=== PATIENT | female | born 2000 ===

== ENCOUNTER 2019-07-06 03:45 | Emergency (ER) | payer MEDICAID, OTHER ==
[~2019-07-06] VITALS: Ht 165.1 cm; Wt 58.5 kg
[2019-07-06] MEDS ORDERED: FENTANYL PF 100MCG/2ML AMPUL ONE ×2 (03:55→04:41)
[2019-07-06] MEDS ORDERED: FENTANYL PF 100MCG/2ML AMPUL IV ONE ×2 (04:00→05:00)
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
--- NOTE | 2019-07-06 04:03 | NUR ---
PT TAKEN TO RADIOLOGY VIA [facility]
[2019-07-06] MEDS ORDERED: IOHEXOL-300 100 ML VIAL IV ONE (04:08)
--- NOTE | 2019-07-06 04:30 | NUR ---
PT BACK FROM CT
--- NOTE | 2019-07-06 04:32 | NUR ---
[facility] CALLED NOTIFIED FOR STAT READ ON CT AND XRAYS.
[2019-07-06 04:55] LABS: BASOPHILS % (AUTO) 0.4 % (0.0-2.0); EOSINOPHILS % (AUTO) 0.1 % (0.0-6.0); HEMATOCRIT 39 % (33-45); HEMOGLOBIN 13.7 g/dL (11.5-14.8); LYMPHOCYTES # (AUTO) 1.6 /CMM (0.8-4.8); LYMPHOCYTES % (AUTO) 18.2 % (20.0-44.0); MEAN CORPUSCULAR HGB CONC 35 g/dl (31.0-36.0); MEAN CORPUSCULAR VOLUME 94 fL (82-100); MONOCYTES # (AUTO) 0.3 /CMM (0.1-1.30); MONOCYTES % (AUTO) 3.4 % (2.0-12.0); NEUTROPHILS # (AUTO) 6.8 /CMM (1.8-8.9); NEUTROPHILS % (AUTO) 77.9 % (43.0-81.0); PLATELET COUNT (AUTO) 203 /CMM (150-450); RED BLOOD CELL COUNT(AUTO) 4.15 MIL/uL (4.0-5.2); WHITE BLOOD COUNT (AUTO) 8.7 K/uL (4.3-11.0)
[2019-07-06 05:05] LABS: CREATININE 0.7 mg/dL (0.6-1.3); POTASSIUM 3.5 mmol/L (3.5-5.1)
[2019-07-06] MEDS ORDERED: KETOROLAC TROMETHAMINE 15 MG/ML VIAL ONE (05:08)
[2019-07-06] MEDS ORDERED: oxyCODONE/APAP (5/325 MG) 1 UDTAB TABLET ONE (05:08)
[2019-07-06] MEDS ORDERED: KETOROLAC TROMETHAMINE INJ 30 MG/ML VIAL IV ONE (05:30)
[2019-07-06] MEDS ORDERED: oxyCODONE/APAP (5/325 MG) 1 UDTAB TABLET PO ONE (05:30)
[2019-07-06 05:32] VITALS: BP 126/75
--- NOTE | 2019-07-06 05:32 | NUR ---
Patient discharged to home in stable condition. Written and verbal after care instructions given. Patient verbalizes understanding of instruction.
== END 2019-07-06 05:35 | disposition home or self-care (01) ==
LOC: ER 03:48
DX: S52.021A Displaced fracture of olecranon process without intraarticular extension of right ulna, initial encounter for closed fracture (principal); R91.1 Solitary pulmonary nodule; R51 Headache; W13.0XXA Fall from, out of or through balcony, initial encounter; Y93.39 Activity, other involving climbing, rappelling and jumping off; Y92.89 Other specified places as the place of occurrence of the external cause; Y99.8 Other external cause status
CPT/HCPCS: 36415; 70450; 71260; 72125; 73070; 73100; 74177; 80048; 85025; 85730; 96374; 96375; 96376; 99284; J1885; J3010 ×2; Q9967